=== PATIENT | male | born 1990 | race Caucasian/White ===

== ENCOUNTER 2018-03-20 09:59 | Emergency (ER) | payer BC, MEDICAID ==
[2018-03-20] MEDS ORDERED: Fluorescein Sodium TOPICAL* 1 MG TEST STRIP OPHTHALMIC ONE (10:16)
[2018-03-20] MEDS ORDERED: Tetracaine 0.5% OPTH.SOL 4 ML* 1 DROP BTL LEFT EYE ONE (10:16)
--- NOTE | 2018-03-20 10:40 | ED ---
Throat Pain/Nasal Congestion - HPI Summary HPI Summary: This patient is a 28 year old M presenting [place] [facility] accompanied by a female with a chief complaint of a possible foreign body in the right eye. Pt reports that at 1930 last night he was grinding metal and a hot shard landed in his right eye. Since then it has not been getting worse and he describes the sensations as uncomfortable. The patient rates the pain 1/10 in severity. Symptoms aggravated by blinking. Symptoms alleviated by nothing. He has used a Q -tip and flushed his eye without relief. Patient reports erythema of the eye. Patient denies visual changes, LÓPEZ, ear ache, nasal discharge, and photophobia. Pt does not wear contact lenses. Pt has been using renew eye drops since last night. - History of Current Complaint Chief Complaint: EDEyeProblem Time Seen by Provider: 03/20/18 10:27 Hx Obtained From: Patient Onset/Duration: Lasting Hours, Still Present Severity: Mild Associated Signs And Symptoms: Positive: Negative - visual changes, LÓPEZ, ear ache , nasal discharge, and photophobia. Negative: Nasal Discharge - Allergies/Home Medications Allergies/Adverse Reactions: Allergies Allergy/AdvReac Type Severity Reaction Status Date / Time No Known Allergies Allergy Verified 03/20/18 10:14 Home Medications: Home Medications NK [No Home Medications Reported] 03/20/18 [History Confirmed 03/20/18] PMH/Surg Hx/FS Hx/Imm Hx Endocrine/Hematology History: Denies: Hx Bone Marrow Disease, Hx Diabetes, Hx Thyroid Disease Cardiovascular History: Denies: Hx Cardiac Arrest, Hx Congestive Heart Failure, Hx Coronary Artery Disease, Hx Pacemaker/ICD Respiratory History: Denies: Hx Chronic Obstructive Pulmonary Disease (COPD), Hx Cystic Fibrosis, Hx Pleural Effusion Sensory History: Denies: Hx Contacts or Glasses Opthamlomology History: Denies: Hx Contacts or Glasses EENT History: Denies: Hx Deafness Infectious Disease History: No Infectious Disease History: Denies: Traveled Outside the [place] in Last 30 Days - Family History Known Family History: Negative: Renal Disease, Respiratory Disease, Seizure Disorder - Social History Occupation: Employed Full-time, Employed Part-time Lives: With Family Alcohol Use: Occasionally Substance Use Type: Reports: Marijuana Hx Tobacco Use: Yes Smoking Status (MU): Current Some Day Smoker Review of Systems Eyes: Other - foreign body in the right eye Positive: Erythema. Negative: Photophobia, Blurred Vision, Drainage Negative: Ear Ache, Nasal Discharge Negative: Headache All Other Systems Reviewed And Are Negative: Yes Physical Exam - Summary Physical Exam Summary: Appearance: Well appearing, no pain distress, pt is a smoker Skin: warm, dry, reflects adequate perfusion Head/face: normal Eyes: EOMI, ROSMERY, tearing in the right eye, metallic foreign body seen in the superior corneal limbus. No pain with light reflex, no injection, no fluorescence uptake ENT: mucous membranes moist Neck: supple, non-tender Respiratory: CTA, breath sounds present Cardiovascular: RRR, pulses symmetrical Abdomen: non-tender, soft Bowel Sounds: present Musculoskeletal: normal, strength/ROM intact Neuro: normal, sensory motor intact, A&Ox3 Triage Information Reviewed: Yes Vital Signs On Initial Exam: Initial Vitals Temp Pulse Resp BP Pulse Ox 98.4 F 74 18 142/89 98 03/20/18 10:10 03/20/18 10:10 03/20/18 10:10 03/20/18 10:10 03/20/18 10:10 Vital Signs Reviewed: Yes Procedures - Eye Procedure right eye Alcaine Drops Administered: Yes Eye FB Removal: removal w/ needle - a portion of the metallic foreign body was removed. , other - portion of metallic foreign body remains. A bur was tried without success Diagnostics - Vital Signs Vital Signs Temp Pulse Resp BP Pulse Ox 03/20/18 10:10 98.4 F 74 18 142/89 98 - Laboratory Lab Statement: Any lab studies that have been ordered have been reviewed, and results considered in the medical decision making process. EENT Course/Dx - Course Course Of Treatment: Pain gone with topical tetracaine. Tetanus updated. I was able to remove a small portion of the metallic foreign body with needle. I tried a bur but this didn't help. I discussed the case with the loan approver will take the patient directly over to the office. - Diagnoses Provider Diagnoses: Foreign body of right eye - Provider Notifications Discussed Care Of Patient With: Cristiano Pope Time Discussed With Above Provider: 10:59 Instructed by Provider To: Other - He will see the patient in his office as soon as he leaves the ED Discharge - Sign-Out/Discharge Documenting (check all that apply): Patient Departure - Discharge Plan Condition: Stable Disposition: HOME Prescriptions: Erythromycin OPTH OINT* [Erythromycin 0.5% OPTH OINT*] 1 applic RIGHT EYE TID 5 Days #1 ophth.oint Patient Education Materials: Eye Foreign Body (ED) Referrals: Cristiano Pope MD [Medical Doctor] - Additional Instructions: Go directly to eye doctor's office now. - Billing Disposition and Condition Condition: STABLE Disposition: Home - Attestation Statements Document Initiated by Scribe: Yes Documenting Scribe: Varinder Mcgovern Provider For Whom Ponce is Documenting (Include Credential): Abel Moulton MD Scribe Attestation: Varinder Friedman , scribed for Abel Moulton MD on 03/20/18 at 1242. Scribe Documentation Reviewed: Yes Provider Attestation: The documentation as recorded by the Varinder craven accurately reflects the service I personally performed and the decisions made by , Abel Moulton MD Status of Scribe Document: Viewed
[2018-03-20] MEDS ORDERED: Tetan/Diph/Pertus SYR(Tdap)* 0.5 ML SYR(BOOSTRIX) use SYR IM ONE (10:59)
[2018-03-20 11:10] VITALS: BP 0/0
== END 2018-03-20 11:08 | disposition home or self-care (01) ==
LOC: ED 09:59
DX: T15.91XA Foreign body on external eye, part unspecified, right eye, initial encounter (principal); Z23 Encounter for immunization; F17.200 Nicotine dependence, unspecified, uncomplicated; W31.89XA Contact with other specified machinery, initial encounter; Y92.9 Unspecified place or not applicable
CPT/HCPCS: 65220; 90471; 90715; 99282; A9270-GY

== ENCOUNTER 2018-05-29 07:53 | Emergency (ER) | payer BC, MEDICAID ==
[2018-05-29 08:05] VITALS: BP 149/106
--- NOTE | 2018-05-29 09:03 | UC ---
Throat Pain/Nasal Robin HPI - HPI Summary HPI Summary: [address], PAIN WITH SWALLOWING. ACTUALLY STARTED TO FEEL BETTER YESTERDAY BUT SAW WHITE PATCHES SO CAME IN FOR STREP TESTING. HAD FEVER INITIALLY BUT NONE NOW. - History of Current Complaint Chief Complaint: UCRespiratory Stated Complaint: SORE THROAT Time Seen by Provider: 05/29/18 08:10 Hx Obtained From: Patient Onset/Duration: Gradual Onset, Lasting Days, Still Present - BUT BETTER Severity: Moderate Pain Intensity: 5 Pain Scale Used: 0-10 Numeric Cough: None Associated Signs & Symptoms: Positive: Fever. Negative: Hoarseness - Allergies/Home Medications Allergies/Adverse Reactions: Allergies Allergy/AdvReac Type Severity Reaction Status Date / Time No Known Allergies Allergy Verified 05/29/18 08:05 Home Medications: Home Medications Ibuprofen TAB* [Advil TAB*] 600 mg PO Q6H PRN 05/29/18 [History Confirmed ] PMH/Surg Hx/FS Hx/Imm Hx Cardiovascular History: Hypertension - Surgical History Surgical History: Yes Surgery Procedure, Year, and Place: meniscus - Family History Known Family History: Negative: Renal Disease, Respiratory Disease, Seizure Disorder - Social History Alcohol Use: Occasionally Alcohol Amount: 6 pack daily Substance Use Type: Marijuana Substance Use Comment - Amount & Last Used: every other day Smoking Status (MU): Heavy Every Day Tobacco Smoker Amount Used/How Often: 1 PPD Review of Systems All Other Systems Reviewed And Are Negative: Yes Constitutional: Positive: Fever ENT: Positive: Sore Throat. Negative: Nasal Discharge Respiratory: Positive: Negative Cardiovascular: Positive: Negative Gastrointestinal: Positive: Negative Physical Exam Triage Information Reviewed: Yes Appearance: Well-Appearing, No Pain Distress, Well-Nourished Vital Signs: Initial Vital Signs Temp 98.7 F 05/29/18 07:59 Pulse 118 05/29/18 07:59 Resp 16 05/29/18 07:59 BP 149/106 05/29/18 07:59 Pulse Ox 96 05/29/18 07:59 Laboratory Tests 05/29/18 08:12 Group A Strep Rapid Negative Vital Signs Reviewed: Yes Eyes: Positive: Conjunctiva Clear ENT: Positive: Hearing grossly normal, Pharyngeal erythema, TMs normal, Tonsillar swelling, Tonsillar exudate. Negative: Muffled voice, Hoarse voice Neck: Positive: Supple, Nontender, No Lymphadenopathy Respiratory Exam: Normal Cardiovascular: Positive: Tachycardia Abdomen Description: Positive: Soft Musculoskeletal: Positive: No Edema Neurological: Positive: Alert Psychological: Positive: Age Appropriate Behavior Skin: Negative: Rashes Throat Pain/Nasal Course/Dx - Course Course Of Treatment: RAPID STREP NEG. PT STATES HE IS ALREADY FEELING BETTER JUST WANTED TO MAKE SURE HE DIDN'T HAVE STREP. CONSERVATIVE MGMT. PREDNISONE. F/ U IF NEEDED. - Differential Dx/Diagnosis Provider Diagnosis: Acute tonsillitis Discharge - Sign-Out/Discharge Documenting (check all that apply): Patient Departure All imaging exams completed and their final reports reviewed: No Studies - Discharge Plan Condition: Stable Disposition: HOME Prescriptions: predniSONE TAB* [Deltasone 20 MG TAB*] 40 mg PO DAILY #10 tab Patient Education Materials: Tonsillitis (ED) Referrals: [facility] [Outside] - If Needed Additional Instructions: STREP TEST NEGATIVE. YOUR SYMPTOMS ARE LIKELY VIRALLY MEDIATED AND SHOULD RESOLVE ON THEIR OWN WITH TIME. NO INDICATION FOR ANTIBIOTICS AT PRESENT. REST, HYDRATE, OTC MEDS NEEDED. WILL TREAT WITH PREDNISONE TO HELP WITH INFLAMMATION. SEEK FOLLOW-UP IF YOU ARE NOT CONTINUING TO IMPROVE OVER THE NEXT WEEK. OTC CHLORASEPTIC OR CEPACOL LOZENGES AND/OR IBUPROFEN FOR SORE THROAT NEEDED CALL THE NUMBER BELOW FOR ASSISTANCE IN ESTABLISHING WITH A PCP An additional resource available to assist in finding the appropriate physician for your health care needs is the [facility] ([facility]). You may contact them by calling [phone]. - Billing Disposition and Condition Condition: STABLE Disposition: Home
== END 2018-05-29 08:55 | disposition home or self-care (01) ==
LOC: UCEAST 07:53
DX: J03.90 Acute tonsillitis, unspecified (principal); I10 Essential (primary) hypertension; F17.210 Nicotine dependence, cigarettes, uncomplicated
CPT/HCPCS: 87651; 99212; G0463